=== PATIENT | female | born 1960 | race Caucasian/White ===

== ENCOUNTER → 2017-01-08 | Outpatient (CLI) | payer BC ==
[~2017-01-08] MED LIST: ADVAIR 250/5028 PUFF IN; AMLO5TAB PO; ASPIRIN 81MG TA81 MG PO; ATORVASTATIN 8080 MG PO; AUGMENTIN 875-1 EACH PO; BRILINTA90 M1 PO; CARVEDILOL6.25 MG PO; CHOLESTEROL MED; CIPRO 500MG TA500 MG PO; FEMARA2.5 MG PO; HYDRALAZINE10 MG PO; HYDROCHLOROTHIA25 M1 PO; LISINOPRIL AND1 TAB PO; LISINOPRIL10 MG PO; MEDROL 4MG. DOSE4 MG PO; METFORMIN500 MG PO; MULTIVITAMIN1 TA2 PO; NORVASC 10MG. T10 MG PO; OXYGEN IH; OXYGEN2 IH; PERCOCET 325 MG1 TA4 PO; PLAVIX75 MG PO; PREDNISONE 20MG20 MG PO; RANITIDINE HCL150 MG PO
[2017-01-08 12:39] LABS: HEMOGLOBIN 12.2 g/dL (12.2-16.2); LYMPH % 55.1 % (10-50.0)
[2017-01-08 12:40] LABS: LYMPH # 2.1 K/mm3 (0.7-4.5)
[2017-01-08 14:53] LABS: BUN 11 mg/dL (7-18)
[2017-01-08 14:54] LABS: GFR (ESTIMATED) 74 ML/MIN (59-)
[2017-01-08 16:03] LABS: NEUTROPHILS 34 % (42-76)
== END ==
LOC: LAB 11:51
PROVIDERS: Nurse Practitioner
DX: C50.412 Malignant neoplasm of upper-outer quadrant of left female breast (principal)

== ENCOUNTER → 2017-02-06 | Outpatient (CLI) | payer BC ==
[2017-02-06 12:24] LABS: HEMOGLOBIN 11.8 g/dL (12.2-16.2); LYMPH # 2.5 K/mm3 (0.7-4.5); LYMPH % 66.3 % (10-50.0)
[2017-02-06 14:34] LABS: BUN 13 mg/dL (7-18)
[2017-02-06 14:42] LABS: GFR (ESTIMATED) 74 ML/MIN (59-)
[2017-02-06 17:18] LABS: CORRECTED WBC 3.7 K/mm3; NEUTROPHILS 20 % (42-76); STOMATOCYTE 1+
== END ==
LOC: LAB 12:15
PROVIDERS: Nurse Practitioner
DX: C50.412 Malignant neoplasm of upper-outer quadrant of left female breast (principal)

== ENCOUNTER → 2017-02-13 | Outpatient (CLI) | payer BC ==
[2017-02-13 13:14] LABS: HEMOGLOBIN 11.3 g/dL (12.2-16.2); LYMPH # 2.4 K/mm3 (0.7-4.5)
[2017-02-13 14:30] LABS: BUN 11 mg/dL (7-18)
[2017-02-13 14:31] LABS: GFR (ESTIMATED) 57 ML/MIN (59-)
[2017-02-13 14:32] LABS: NEUTROPHILS 31 % (42-76)
== END ==
LOC: LAB 12:57
PROVIDERS: Nurse Practitioner
DX: C50.412 Malignant neoplasm of upper-outer quadrant of left female breast (principal)

== ENCOUNTER → 2017-03-12 | Outpatient (CLI) | payer BC ==
[2017-03-12 09:57] LABS: HEMOGLOBIN 11.1 g/dL (12.2-16.2); LYMPH # 2.1 K/mm3 (0.7-4.5)
[2017-03-12 10:56] LABS: BUN 8 mg/dL (7-18)
[2017-03-12 10:57] LABS: GFR (ESTIMATED) 74 ML/MIN (59-)
[2017-03-12 12:59] LABS: NEUTROPHILS 38 % (42-76)
== END ==
LOC: LAB 09:34
PROVIDERS: Nurse Practitioner
DX: C50.412 Malignant neoplasm of upper-outer quadrant of left female breast (principal)

== ENCOUNTER → 2017-07-02 | Outpatient (CLI) | payer BC ==
[2017-07-02 08:25] LABS: HEMOGLOBIN 11.7 g/dL (12.2-16.2); LYMPH # 2.1 K/mm3 (0.7-4.5); LYMPH % 61.2 % (10-50.0)
[2017-07-02 09:42] LABS: NEUTROPHILS 34 % (42-76)
[2017-07-02 10:19] LABS: BUN 14 mg/dL (7-18)
[2017-07-02 10:20] LABS: GFR (ESTIMATED) 74 ML/MIN (59-)
== END ==
LOC: LAB 08:11
PROVIDERS: Nurse Practitioner
DX: C50.412 Malignant neoplasm of upper-outer quadrant of left female breast (principal); I74.4 Embolism and thrombosis of arteries of extremities, unspecified

== ENCOUNTER → 2017-07-25 | Outpatient (CLI) | payer BC ==
--- NOTE | 2017-07-26 12:27 | RADIOLOGY REPORT PS360 ---
CARDIOLITE SPECT MYOCARDIAL PERFUSION SCAN, REST AND STRESS: EXERCISE STRESS [facility] REVIEW QGS EF AND WALL MOTION EVALUATION: QPS - PERFUSION EVALUATION HISTORY: SOB, Fatigue, HTN, Hx of IN, DM DOSE: 10.42 mCi technetium 99m mibi intravenously at rest followed by 30.0 mCi technetium 99m mibi following the intravenous ministration of 0.4 mg of Lexiscan. Resting blood pressure is 165/92. Stress blood pressure 169/89. FINDINGS: Ejection fraction is calculated to be 67%. Uniform myocardial activity at both stress and rest with a gated image calculated ejection fraction of 67% with normal wall motion IMPRESSION: No scintigraphic evidence of Lexiscan-induced myocardial ischemia with normal ejection fraction and normal wall motion
--- NOTE | 2017-07-26 12:27 | RADIOLOGY REPORT PS360 ---
CARDIOLITE SPECT MYOCARDIAL PERFUSION SCAN, REST AND STRESS: EXERCISE STRESS [facility] REVIEW QGS EF AND WALL MOTION EVALUATION: QPS - PERFUSION EVALUATION HISTORY: SOB, Fatigue, HTN, Hx of NC, DM DOSE: 10.42 mCi technetium 99m mibi intravenously at rest followed by 30.0 mCi technetium 99m mibi following the intravenous ministration of 0.4 mg of Lexiscan. Resting blood pressure is 165/92. Stress blood pressure 169/89. FINDINGS: Ejection fraction is calculated to be 67%. Uniform myocardial activity at both stress and rest with a gated image calculated ejection fraction of 67% with normal wall motion IMPRESSION: No scintigraphic evidence of Lexiscan-induced myocardial ischemia with normal ejection fraction and normal wall motion
--- NOTE | 2017-07-26 16:08 | RADIOLOGY REPORT PS360 ---
PROCEDURE: 2-D M-mode and color Doppler study INDICATIONS FOR THE TEST: Chest pain + COPD Heart Murmur Tobacco Smoking Palpitations Fatigue Syncope Edema+ Hypertension+Diabetes Mellitus+ Rheumatic Fever SOB+BOATENG Obesity+Hyperlipidemia Family History HD Additional History BREAST CA CHEMO PILL SINCE 10/10 PATIENT INFORMATION HEIGHT: 65 WEIGHT:245 GENDER: Female B/P:165/92 2-D/M-MODE INTERPRETATION: 2-D MEASUREMENTS OBSERVED VALUES IN CMS Right Ventricular Dimension (RVDd) 3.0 Interventricular Septum (Thickness)(IVsd) 1.0 Left Ventricular Internal Dimensions(LVIDd) 5.6 Left Ventricular Posterior Wall (Thickness)(LVPWd) 0.5 Aortic Root 3.3 Aortic Cusp Separation 2.4 Left Atrial Dimensions (LAD) 4.3 2D 1. Technically difficult study because of the patient's factor and poor acoustic windows. 2. The left atrium is mildly enlarged, left ventricle is normal size, visually estimated ejection fraction of 55% with no obvious regional wall motion abnormality, endocardial surfaces are poorly visualized. 3. The right atrium and right ventricle are relatively normal size and function. 4. The aortic valve is minimally thickened and fibrosed. 5. The mitral and tricuspid valve are grossly normal. 6. The pulmonic valve is poorly visualized. 7. No significant pericardial effusion noted. DOPPLER INTERROGATION: The Doppler interrogation of the aortic mitral and tricuspid valvular presence of mild mitral and tricuspid regurgitation, tricuspid regurgitant jet velocity insufficient for calculation of the right ventricular systolic pressure, grade 1 diastolic dysfunction seen without tissue Doppler evidence of raised left atrial pressure. CONCLUSION: 1. Technically difficult study because of the patient's factor and poor acoustic windows 2. Mildly enlarged left atrium, normal left ventricular size, visually estimated ejection fraction of 55% with no obvious regional wall motion abnormality, endocardial surfaces are poorly visualized, grade 1 diastolic dysfunction seen without tissue Doppler evidence of raised left atrial pressure. 3. Mild mitral and tricuspid regurgitation. 4. No significant pericardial effusion noted.
== END ==
LOC: RAD 07-24 06:00 → RT 07-24 11:00 → RAD 11:09
DX: R07.9 Chest pain, unspecified (principal)
CPT/HCPCS: A9502; J2785

== ENCOUNTER → 2017-07-30 | Outpatient (CLI) | payer BC ==
[2017-07-30 16:01] LABS: HEMOGLOBIN 11.5 g/dL (12.2-16.2); LYMPH # 2.4 K/mm3 (0.7-4.5); LYMPH % 58.6 % (10-50.0)
[2017-07-30 16:16] LABS: BUN 18 mg/dL (7-18)
[2017-07-30 16:20] LABS: GFR (ESTIMATED) 65 ML/MIN (59-)
[2017-07-30 19:30] LABS: NEUTROPHILS 31 % (42-76)
== END ==
LOC: LAB 15:40
PROVIDERS: Nurse Practitioner
DX: C50.412 Malignant neoplasm of upper-outer quadrant of left female breast (principal); I74.4 Embolism and thrombosis of arteries of extremities, unspecified

== ENCOUNTER → 2017-08-28 | Outpatient (CLI) | payer BC ==
[2017-08-28 10:51] LABS: BUN 12 mg/dL (7-18)
[2017-08-28 11:11] LABS: GFR (ESTIMATED) 65 ML/MIN (59-)
== END ==
LOC: LAB 09:40
PROVIDERS: Nurse Practitioner
DX: C50.412 Malignant neoplasm of upper-outer quadrant of left female breast (principal); I74.4 Embolism and thrombosis of arteries of extremities, unspecified

== ENCOUNTER → 2017-08-30 | Outpatient (CLI) | payer BC ==
[2017-08-30 08:10] LABS: HEMOGLOBIN 12.2 g/dL (12.2-16.2); LYMPH # 1.7 K/mm3 (0.7-4.5); LYMPH % 46.9 % (10-50.0)
== END ==
LOC: LAB 07:49
PROVIDERS: Nurse Practitioner
DX: C50.412 Malignant neoplasm of upper-outer quadrant of left female breast (principal); I74.4 Embolism and thrombosis of arteries of extremities, unspecified

== ENCOUNTER → 2017-10-22 | Outpatient (CLI) | payer BC ==
[2017-10-22 14:46] LABS: BUN 14 mg/dL (7-18); GFR (ESTIMATED) 65 ML/MIN (59-); HEMOGLOBIN 11.3 g/dL (12.2-16.2); LYMPH # 1.8 K/mm3 (0.7-4.5); LYMPH % 53.6 % (10-50.0)
[2017-10-22 15:55] LABS: CORRECTED WBC 3.4 K/mm3; NEUTROPHILS 34 % (42-76)
== END ==
LOC: LAB 14:07
PROVIDERS: Nurse Practitioner
DX: C50.412 Malignant neoplasm of upper-outer quadrant of left female breast (principal); I74.4 Embolism and thrombosis of arteries of extremities, unspecified